=== PATIENT | female | born 1945 | race Native Hawaiian/Other Pacific Islander ===

== ENCOUNTER 2023-05-11 23:48 | Emergency (ER) | payer OTHER ==
[~2023-05-11] VITALS: Ht 157.5 cm; Wt 63.5 kg
[2023-05-12 01:42] VITALS: BP 121/55; TEMP 97.9
== END 2023-05-12 01:42 | disposition home or self-care (01) ==
LOC: ED 23:48
DX: S01.81XA Laceration without foreign body of other part of head, initial encounter (principal); W19.XXXA Unspecified fall, initial encounter; I10 Essential (primary) hypertension
CPT/HCPCS: 96372; 99283; J2270